=== PATIENT | male | born 1980 | race Hispanic/Latino ===

== ENCOUNTER 2016-11-23 17:45 | Emergency (ER) | payer BC ==
[2016-11-23 17:56] VITALS: BP 147/74; PULSE 67; RESP 16; TEMP 97.5; O2SAT 98
--- NOTE | 2016-11-23 19:36 | ED PDOC ---
Lower Extremity Pain/Injury Time Seen by Provider: 11/23/16 19:16 Chief Complaint (Nursing): Lower Extremity Problem/Injury Chief Complaint (Provider): Left Foot Pain History Per: Patient History/Exam Limitations: no limitations Onset/Duration Of Symptoms: Days (x3) Current Symptoms Are (Timing): Still Present Additional Complaint(s): 19:27 Oliver Ricks is a 35 year old male that presents to the ED with a chief complaint of left foot pain that he has been experiencing for the past three days. Patient states that he did not experience any trauma or injury, but rather that he woke up three days ago with left foot pain, and has had trouble bearing weight on his foot since. He reports that he has been walking a lot for that usual this past month, and that he wears "uncomfortable dress shoes that provide no support" while doing so. PMD: None Past Medical History Reviewed: Historical Data, Nursing Documentation, Vital Signs Vital Signs: Last Vital Signs Temp 97.5 F L 11/23/16 17:53 Pulse 67 11/23/16 17:53 Resp 16 11/23/16 17:53 BP 147/74 11/23/16 17:53 Pulse Ox 98 11/23/16 17:53 - Medical History PMH: No Chronic Diseases - Surgical History Surgical History: No Surg Hx - Family History Family History: States: Unknown Family Hx - Home Medications Home Medications: Ambulatory Orders Medication Instructions Recorded Ibuprofen [Motrin] 600 mg PO Q6 #20 tab 11/23/16 - Allergies Allergies/Adverse Reactions: Allergies Allergy/AdvReac Type Severity Reaction Status Date / Time No Known Allergies Allergy Verified 11/23/16 17:53 Review of Systems Musculoskeletal: Positive for: Foot Pain (left foot pain) Physical Exam - Reviewed Nursing Documentation Reviewed: Yes Vital Signs Reviewed: Yes - Physical Exam Appears: Positive for: Non-toxic, No Acute Distress Head Exam: Positive for: ATRAUMATIC, NORMOCEPHALIC Skin: Positive for: Normal Color, Warm Pulses-Dorsalis Pedis (L): 2+ Pulses-Dorsalis Pedis (R): 2+ Extremity: Positive for: Other (pain on dorsal aspect of left foot between fourth and fifth toes; no pain on plantar aspect of left foot) - ECG O2 Sat by Pulse Oximetry: 98 (RA) Pulse Ox Interpretation: Normal Medical Decision Making Medical Decision Makin:27 Initial Impression: Left Foot Pain (Possibly Jay's Neuroma) Initial Plan: * X-Ray Left Foot * Ibuprofen 600 mg PO * Reevaluation * * XR: NAD, as read by KYLAH Advised to follow up with podiatry clinic Scribe Attestation: Documented by Mary Bassett, acting as a scribe for Zahida Hargrove PA-C. Provider Scribe Attestation: All medical record entries made by the Scribe were at my direction and personally dictated by me. I have reviewed the chart and agree that the record accurately reflects my personal performance of the history, physical exam, medical decision making, and the department course for this patient. I have also personally directed, reviewed, and agree with the discharge instructions and disposition. Disposition - Clinical Impression Clinical Impression: Jay neuroma - Patient ED Disposition Is Patient to be Admitted: No - Disposition Referrals: [facility] [Outside] Podiatry Clinic [Outside] Disposition: Routine/Home Disposition Time: 22:19 Condition: STABLE Prescriptions: Ibuprofen [Motrin] 600 mg PO Q6 #20 tab Instructions: Jay Neuroma (ED)
--- NOTE | 2016-11-24 08:18 | RAD ---
PROCEDURE: Left Foot Radiographs. HISTORY: pain COMPARISON: None. FINDINGS: BONES: Normal. No fracture. JOINTS: Normal. SOFT TISSUES: Normal. OTHER FINDINGS: None. IMPRESSION: No evidence of acute pathology.
== END 2016-11-23 21:53 | disposition home or self-care (01) ==
LOC: H.ER 17:45
DX: M79.672 Pain in left foot (principal)

== ENCOUNTER 2017-07-21 03:24 | Observation (INO) | payer BC ==
[2017-07-21 03:33] VITALS: BMI 25.8
--- NOTE | 2017-07-21 04:08 | ED PDOC ---
HPI: Chest Pain Time Seen by Provider: 07/21/17 03:31 Chief Complaint (Nursing): Chest Pain Chief Complaint (Provider): Chest Pain History Per: Patient History/Exam Limitations: no limitations Onset/Duration Of Symptoms: Hrs (x2) Current Symptoms Are (Timing): Still Present Context: Other (Substance Abuse) Severity: Severe Associated Symptoms: denies: Diaphoresis Additional Complaint(s): 36 year old male presents to ED with complaints of chest pain x2 hours and has a past medical history of cocaine abuse. Notes that he has used cocaine regularly within the last 24 hours along with alcohol and marijuana, and notes onset of chest pain after cocaine abuse. Describes pain as severe. (+) palpitations and anxiety. (-) nausea, vomiting, diaphoresis, suicidal ideation, or homicidal ideation. PCP: [facility] Past Medical History Reviewed: Historical Data, Nursing Documentation, Vital Signs Vital Signs: Last Vital Signs Temp 97.4 F L 07/21/17 05:52 Pulse 71 07/21/17 05:52 Resp 18 07/21/17 05:52 BP 125/80 07/21/17 05:52 Pulse Ox 99 07/21/17 06:09 - Medical History PMH: No Chronic Diseases - Family History Family History: States: Unknown Family Hx - Social History Alcohol: Occasional Drugs: Cannabis, Cocaine - Home Medications Home Medications: Ambulatory Orders Medication Instructions Recorded Ibuprofen [Motrin] 600 mg PO Q6 PRN 07/21/17 - Allergies Allergies/Adverse Reactions: Allergies Allergy/AdvReac Type Severity Reaction Status Date / Time No Known Allergies Allergy Verified 07/21/17 03:33 RUSSELL Risk Score for UA/NSTEMI - RUSSELL Risk Score Age > 64: NO Known CAD (Stenosis greater than 50%): NO Severe Angina: NO RUSSELL Score: 0 Risk %: 5% Curb-65 Severity Score - CURB-65 Severity Score Confusion: No Respiratory Rate greater than/equal to 30: No Systolic BP <90 or Diastolic BP less than/equal 60mmHg: No Age >64: No Curb-65 Score: 0 Percentage 30-day mortality: 0.6% Wells Criteria for PE - Wells Criteria for Pulmonary Embolism Clinical Signs and Symptoms of DVT: No P.E is #1 Diagnosis, or Equally Likely: No Heart Rate >100: Yes Previous, objectively diagnosed PE or DVT: No Hemoptysis: No Malignancy w/treatment within 6 months, or palliative: No Total Score: 1.5 Review of Systems ROS Statement: Except As Marked, All Systems Reviewed And Found Negative Constitutional: Negative for: Sweats Cardiovascular: Positive for: Chest Pain, Palpitations Gastrointestinal: Negative for: Nausea, Vomiting Psych: Negative for: Suicidal ideation Physical Exam - Reviewed Nursing Documentation Reviewed: Yes Vital Signs Reviewed: Yes - Physical Exam Appears: Positive for: Non-toxic Head Exam: Positive for: ATRAUMATIC, NORMOCEPHALIC Skin: Positive for: Normal Color, Warm, Dry Eye Exam: Positive for: Normal appearance, EOMI, PERRL ENT: Positive for: Normal ENT Inspection Neck: Positive for: Normal, Painless ROM Cardiovascular/Chest: Positive for: Regular Rate, Rhythm, Tachycardia Respiratory: Positive for: Normal Breath Sounds. Negative for: Respiratory Distress Gastrointestinal/Abdominal: Positive for: Normal Exam, Soft. Negative for: Tenderness Back: Positive for: Normal Inspection Extremity: Positive for: Normal ROM. Negative for: Deformity Neurologic/Psych: Positive for: Alert, Oriented. Negative for: Motor/Sensory Deficits - Laboratory Results Result Diagrams: 07/21/17 03:50 07/21/17 03:50 - ECG O2 Sat by Pulse Oximetry: 99 (RA) Pulse Ox Interpretation: Normal Medical Decision Making Medical Decision Makin Initial impression: chest pain in setting of cocaine abuse Initial plan: * EKG * EtOH serum * Labs * UDrug screen * Trop I * PTT/PT * CXR * ASA 324 mg PO * Ativan 2mg IVP * Re-eval 0440 XR: NAD Labs reviewed: no clinically significant abnormalities Patient will be admitted to [facility] TELE. Will call Dr. Schroeder at [phone]. Dx: chest pain, cocaine abuse [address] Schroeder, who accepts patient under his care. Scribe Attestation: Documented by Susie Hall acting as a scribe for Santos Mendoza MD. Scribe Attestation: All medical record entries made by the Scribe were at my direction and personally dictated by me. I have reviewed the chart and agree that the record accurately reflects my personal performance of the history, physical exam, medical decision making, and the department course for this patient. I have also personally directed, reviewed, and agree with the discharge instructions and disposition. Disposition - Clinical Impression Clinical Impression: Chest pain, Cocaine abuse - Patient ED Disposition Is Patient to be Admitted: Yes Discussed With : Ju Schroeder - Disposition Disposition Time: 04:20 Condition: STABLE - Pt Status Changed To: Hospital Disposition Of: Observation (OBS TELE for chest pain observation) - POA Present On Arrival: None
[2017-07-21 04:12] LABS: BASO # 0.1 K/uL (0.0-0.2); BASO % 0.5 % (0.0-2.0); EOS # 0.1 K/uL (0.0-0.7); EOS % 0.8 % (0.0-4.0); HEMATOCRIT 41.2 % (35.0-51.0); LYMPH % 10.8 % (20.0-40.0); MEAN CORPUSCULAR HEMOGLOBIN 27.9 pg (27.0-31.0); MEAN CORPUSCULAR HGB CONC 33.6 g/dL (33.0-37.0); MEAN PLATELET VOLUME 7.7 fl (7.2-11.7); MONO # 1.1 K/uL (0.0-0.8); MONO % 5.8 % (0.0-10.0); NEUT # 14.9 K/uL (1.8-7.0); NEUT % 82.1 % (50.0-75.0); RED CELL DISTRIBUTION WIDTH 14.2 % (11.5-14.5); WHITE BLOOD COUNT 18.1 K/uL (4.8-10.8)
[2017-07-21 04:23] LABS: ALCOHOL SERUM < 10 mg/dl (0-10); BLOOD UREA NITROGEN 13 mg/dl (9-20); CALCIUM 9.5 mg/dL (8.4-10.2); CARBON DIOXIDE 25 mmol/L (22-30); CHLORIDE 100 mmol/L (98-107); GFR AFRICAN-AMERICAN > 60; GLUCOSE,RANDOM 108 mg/dL (75-110); PARTIAL THROMBOPLASTIN TIME 31.4 Seconds (25.6-37.1); POTASSIUM 3.7 MMOL/L (3.6-5.0); SODIUM 139 mmol/l (132-148)
--- NOTE | 2017-07-21 08:28 | CP.PCM.HP ---
History of Present Illness - History of Present Illness History of Present Illness: 36 year old male presents to ED with complaints of chest pain x2 hours and has a past medical history of cocaine abuse. Notes that he has used cocaine regularly within the last 24 hours along with alcohol and marijuana, and notes onset of chest pain after cocaine abuse. Describes pain as severe. (+) palpitations and anxiety. (-) nausea, vomiting, diaphoresis, suicidal ideation, or homicidal ideation. Past Patient History - Past Medical History & Family History Past Medical History?: No - Past Social History Alcohol: Occasional Drugs: Cannabis, Cocaine - CARDIAC Hx Cardiac Disorders: No - HEMATOLOGICAL/ONCOLOGICAL Hx AIDS: No Hx Human Immunodeficiency Virus (HIV): No - MUSCULOSKELETAL/RHEUMATOLOGICAL Hx Falls: No - PSYCHIATRIC Hx Psychophysiologic Disorder: No (anxiety) Hx Substance Use: Yes (cocaine & weed) - SURGICAL HISTORY Hx Surgeries: No Other/Comment: Polyp removed from tonsils - ANESTHESIA Hx Anesthesia: No Meds Allergies/Adverse Reactions: Allergies Allergy/AdvReac Type Severity Reaction Status Date / Time No Known Allergies Allergy Verified 07/21/17 03:33 Results - Vital Signs Recent Vital Signs: Last Vital Signs Temp 97.1 F L 07/21/17 08:00 Pulse 71 07/21/17 08:00 Resp 20 07/21/17 08:00 BP 112/67 07/21/17 08:00 Pulse Ox 97 07/21/17 08:00 - Labs Result Diagrams: 07/21/17 03:50 07/21/17 03:50 Labs: Laboratory Results - last 24 hr 07/21/17 07/21/17 07/21/17 03:50 03:50 03:50 WBC 18.1 H RBC 4.97 Hgb 13.8 Hct 41.2 MCV 83.0 MCH 27.9 MCHC 33.6 RDW 14.2 Plt Count 309 MPV 7.7 Neut % (Auto) 82.1 H Lymph % (Auto) 10.8 L [place] % (Auto) 5.8 Eos % (Auto) 0.8 Baso % (Auto) 0.5 Neut # 14.9 H Lymph # 2.0 Wirt # 1.1 H Eos # 0.1 Baso # 0.1 PT 13.6 H INR 1.2 APTT 31.4 Sodium 139 Potassium 3.7 Chloride 100 Carbon Dioxide 25 Anion Gap 18 BUN 13 Creatinine 0.8 Est GFR ( Amer) > 60 Est GFR (Non-Af Amer) > 60 Random Glucose 108 Calcium 9.5 Troponin I < 0.0120 Urine Opiates Screen Urine Methadone Screen Ur Barbiturates Screen Ur Phencyclidine Scrn Ur Amphetamines Screen U Benzodiazepines Scrn U Oth Cocaine Metabols U Cannabinoids Screen Alcohol, Quantitative < 10 07/21/17 06:00 WBC RBC Hgb Hct MCV MCH MCHC RDW Plt Count MPV Neut % (Auto) Lymph % (Auto) [place] % (Auto) Eos % (Auto) Baso % (Auto) Neut # Lymph # Wirt # Eos # Baso # PT INR APTT Sodium Potassium Chloride Carbon Dioxide Anion Gap BUN Creatinine Est GFR ( Amer) Est GFR (Non-Af Amer) Random Glucose Calcium Troponin I Urine Opiates Screen Negative Urine Methadone Screen Negative Ur Barbiturates Screen Negative Ur Phencyclidine Scrn Negative Ur Amphetamines Screen Negative U Benzodiazepines Scrn Negative U Oth Cocaine Metabols Positive H U Cannabinoids Screen Positive H Alcohol, Quantitative Assessment & Plan (1) Chest pain Status: Acute (2) Cocaine abuse Status: Acute
--- NOTE | 2017-07-21 11:03 | RAD ---
HISTORY: chest pain COMPARISON: Chest radiograph dated 09/07/2012 FINDINGS: LUNGS: No active pulmonary disease. PLEURA: No significant pleural effusion identified, no pneumothorax apparent. CARDIOVASCULAR: Normal. OSSEOUS STRUCTURES: No significant abnormalities. VISUALIZED UPPER ABDOMEN: Normal. OTHER FINDINGS: None. IMPRESSION: No active disease.
--- NOTE | 2017-07-21 11:13 | CARD ---
APPROVED REPORT EKG Measurement Heart [id number] <Conclusion> Sinus tachycardia Otherwise normal ECG
[2017-07-21 11:37] LABS: HEMATOCRIT 39.6 % (35.0-51.0); MEAN CELL VOLUME 82.8 fl (80.0-94.0); MEAN CORPUSCULAR HEMOGLOBIN 28.4 pg (27.0-31.0); MEAN CORPUSCULAR HGB CONC 34.3 g/dL (33.0-37.0); RED CELL DISTRIBUTION WIDTH 13.9 % (11.5-14.5)
[2017-07-21 13:02] VITALS: O2SAT 98
[2017-07-21 16:13] VITALS: BP 123/79; PULSE 61; RESP 17; TEMP 97.7
--- NOTE | 2017-07-21 17:08 | CP.PCM.CON ---
History of Present Illness - History of Present Illness History of Present Illness: This 36-year-old man came into the emergency room complaining of severe chest tightness and by his own account this was following inhalation of cocaine. The patient reports that in the past he has experienced similar discomfort under similar circumstances but this time around it was extremely intense requiring him to come to the emergency room. The patient occasionally plays basketball and climbs couple of flights of stairs without experiencing any chest pain. He has been a smoker for approximately 17 years. He denies any history of diabetes. He has been told of elevated blood pressure readings during visit to dental offices in the last 3-4 months. He has not been on any antihypertensives medication. Denies knowing his lipid profile. He indicated that multiple members of his family on his mother's side have had coronary artery disease. The patient himself indicates that he has never been hospitalized and has never been on any medications and has never been operated on. Physical examination shows a young man who is alert awake over and afebrile and quite readily forthcoming with details of his history. His respirator rate was 14-16 breaths per minute and his heart rate was 78 bpm and regular and his blood pressure was 142/80 millimeters of mercury. His jugular venous pressure was not elevated and there was no edema was noted extremity. His pedal pulses are well felt and there were no carotid bruits. His extremities were warm and his nailbeds were pink. There was no central or peripheral cyanosis. The apex was not palpable. The first and second heart sounds are normal. There was no gallop and there were no murmurs. Abdomen was soft liver and spleen are not palpable. His electro-cardiogram showed sinus rhythm with no ST-T abnormality suggestive of myocardial ischemia and there were no Q waves on the electric cardiogram. An echocardiogram done this afternoon shows normal left ventricular systolic function and wall motion. There was no valvular abnormality detected. His lab tests show normal BUN/creatinine and electrolytes. His CBC was also satisfactory. A lipid profile was not included in his lab tests. Impression: Atypical chest pain with no evidence of acute coronary syndrome. The chest pain was most likely brought on by cocaine use. Chronic cigarette use The patient may be allowed to return home and be followed by his primary care physician. The patient certainly needs to have his lipid profile evaluated and I have urged him strongly to quit smoking given his family history. He also needs to follow his blood pressure readings and if abnormal needs to start taking anti-hypertensives as well. Past Patient History - Past Medical History & Family History Past Medical History?: No - Past Social History Alcohol: Occasional Drugs: Cannabis, Cocaine - CARDIAC Hx Cardiac Disorders: No - HEMATOLOGICAL/ONCOLOGICAL Hx AIDS: No Hx Human Immunodeficiency Virus (HIV): No - MUSCULOSKELETAL/RHEUMATOLOGICAL Hx Falls: No - PSYCHIATRIC Hx Psychophysiologic Disorder: No (anxiety) Hx Substance Use: Yes (cocaine & weed) - SURGICAL HISTORY Hx Surgeries: No Other/Comment: Polyp removed from tonsils - ANESTHESIA Hx Anesthesia: No Meds Allergies/Adverse Reactions: Allergies Allergy/AdvReac Type Severity Reaction Status Date / Time No Known Allergies Allergy Verified 07/21/17 03:33 Results - Vital Signs Recent Vital Signs: Last Vital Signs Temp 97.7 F 07/21/17 16:12 Pulse 61 07/21/17 16:12 Resp 17 07/21/17 16:12 BP 123/79 07/21/17 16:12 Pulse Ox 98 07/21/17 16:12 - Labs Result Diagrams: 07/21/17 10:54 07/21/17 03:50 Labs: Laboratory Results - last 24 hr 07/21/17 07/21/17 07/21/17 03:50 03:50 03:50 WBC 18.1 H RBC 4.97 Hgb 13.8 Hct 41.2 MCV 83.0 MCH 27.9 MCHC 33.6 RDW 14.2 Plt Count 309 MPV 7.7 Neut % (Auto) 82.1 H Lymph % (Auto) 10.8 L [place] % (Auto) 5.8 Eos % (Auto) 0.8 Baso % (Auto) 0.5 Neut # 14.9 H Lymph # 2.0 [place] # 1.1 H Eos # 0.1 Baso # 0.1 PT 13.6 H INR 1.2 APTT 31.4 Sodium 139 Potassium 3.7 Chloride 100 Carbon Dioxide 25 Anion Gap 18 BUN 13 Creatinine 0.8 Est GFR ( Amer) > 60 Est GFR (Non-Af Amer) > 60 Random Glucose 108 Calcium 9.5 Troponin I < 0.0120 Urine Opiates Screen Urine Methadone Screen Ur Barbiturates Screen Ur Phencyclidine Scrn Ur Amphetamines Screen U Benzodiazepines Scrn U Oth Cocaine Metabols U Cannabinoids Screen Alcohol, Quantitative < 10 07/21/17 07/21/17 07/21/17 06:00 09:37 10:54 WBC 14.0 H RBC 4.78 Hgb 13.6 Hct 39.6 MCV 82.8 MCH 28.4 MCHC 34.3 RDW 13.9 Plt Count 329 MPV Neut % (Auto) Lymph % (Auto) [place] % (Auto) Eos % (Auto) Baso % (Auto) Neut # Lymph # [place] # Eos # Baso # PT INR APTT Sodium Potassium Chloride Carbon Dioxide Anion Gap BUN Creatinine Est GFR ( Amer) Est GFR (Non-Af Amer) Random Glucose Calcium Troponin I < 0.0120 Urine Opiates Screen Negative Urine Methadone Screen Negative Ur Barbiturates Screen Negative Ur Phencyclidine Scrn Negative Ur Amphetamines Screen Negative U Benzodiazepines Scrn Negative U Oth Cocaine Metabols Positive H U Cannabinoids Screen Positive H Alcohol, Quantitative
--- NOTE | 2017-07-21 23:40 | CP.PCM.DIS ---
Provider - Provider Date of Admission: 07/21/17 04:18 Attending physician: Ju Schroeder MD Diagnosis - Discharge Diagnosis (1) Chest pain Status: Acute (2) Cocaine abuse Status: Acute Hospital Course - Lab Results Lab Results: Most Recent Lab Values WBC 14.0 K/uL (4.8-10.8) H 07/21/17 10:54 RBC 4.78 Mil/uL (4.40-5.90) 07/21/17 10:54 Hgb 13.6 g/dL (12.0-18.0) 07/21/17 10:54 Hct 39.6 % (35.0-51.0) 07/21/17 10:54 MCV 82.8 fl (80.0-94.0) 07/21/17 10:54 MCH 28.4 pg (27.0-31.0) 07/21/17 10:54 MCHC 34.3 g/dL (33.0-37.0) 07/21/17 10:54 RDW 13.9 % (11.5-14.5) 07/21/17 10:54 Plt Count 329 K/uL (130-400) 07/21/17 10:54 MPV 7.7 fl (7.2-11.7) 07/21/17 03:50 Neut % (Auto) 82.1 % (50.0-75.0) H 07/21/17 03:50 Lymph % (Auto) 10.8 % (20.0-40.0) L 07/21/17 03:50 [place] % (Auto) 5.8 % (0.0-10.0) 07/21/17 03:50 Eos % (Auto) 0.8 % (0.0-4.0) 07/21/17 03:50 Baso % (Auto) 0.5 % (0.0-2.0) 07/21/17 03:50 Neut # 14.9 K/uL (1.8-7.0) H 07/21/17 03:50 Lymph # 2.0 K/uL (1.0-4.3) 07/21/17 03:50 Jones # 1.1 K/uL (0.0-0.8) H 07/21/17 03:50 Eos # 0.1 K/uL (0.0-0.7) 07/21/17 03:50 Baso # 0.1 K/uL (0.0-0.2) 07/21/17 03:50 PT 13.6 Seconds (9.8-13.1) H 07/21/17 03:50 INR 1.2 (0.9-1.2) 07/21/17 03:50 APTT 31.4 Seconds (25.6-37.1) 07/21/17 03:50 Sodium 139 mmol/l (132-148) 07/21/17 03:50 Potassium 3.7 MMOL/L (3.6-5.0) 07/21/17 03:50 Chloride 100 mmol/L (98-107) 07/21/17 03:50 Carbon Dioxide 25 mmol/L (22-30) 07/21/17 03:50 Anion Gap 18 (10-20) 07/21/17 03:50 BUN 13 mg/dl (9-20) 07/21/17 03:50 Creatinine 0.8 mg/dl (0.8-1.5) 07/21/17 03:50 Est GFR ( Amer) > 60 07/21/17 03:50 Est GFR (Non-Af Amer) > 60 07/21/17 03:50 Random Glucose 108 mg/dL (75-110) 07/21/17 03:50 Calcium 9.5 mg/dL (8.4-10.2) 07/21/17 03:50 Troponin I < 0.0120 ng/mL (0.00-0.120) 07/21/17 09:37 Urine Opiates Screen Negative (NEGATIVE) 07/21/17 06:00 Urine Methadone Screen Negative (NEGATIVE) 07/21/17 06:00 Ur Barbiturates Screen Negative (NEGATIVE) 07/21/17 06:00 Ur Phencyclidine Scrn Negative (NEGATIVE) 07/21/17 06:00 Ur Amphetamines Screen Negative (NEGATIVE) 07/21/17 06:00 U Benzodiazepines Scrn Negative (NEGATIVE) 07/21/17 06:00 U Oth Cocaine Metabols Positive (NEGATIVE) H 07/21/17 06:00 U Cannabinoids Screen Positive (NEGATIVE) H 07/21/17 06:00 Alcohol, Quantitative < 10 mg/dl (0-10) 07/21/17 03:50 Discharge Exam - Head Exam Head Exam: ATRAUMATIC, NORMOCEPHALIC Discharge Plan - Follow Up Plan Condition: STABLE Disposition: HOME/ ROUTINE Instructions: Chest Pain (DC), Chest Pain (GEN)
--- NOTE | 2017-07-22 11:32 | CARD ---
APPROVED REPORT EXAM: Two-dimensional and M-mode echocardiogram with Doppler and color Doppler. Other Information Quality : GoodRhythm : NSR INDICATION Chest Pain 2D DIMENSIONS IVSd1.21 (0.7-1.1cm)LVDd4.69 (3.9-5.9cm) LVOT Diameter2.15 (1.8-2.4cm)PWd0.77 (0.7-1.1cm) IVSs1.43 (0.8-1.2cm)LVDs2.91 (2.5-4.0cm) FS (%) 38.0 %PWs1.35 (0.8-1.2cm) M-Mode DIMENSIONS Left Atrium (MM)3.65 (2.5-4.0cm)IVSd0.88 (0.7-1.1cm) Aortic Root2.85 (2.2-3.7cm)LVDd5.24 (4.0-5.6cm) Aortic Cusp Exc.2.03 (1.5-2.0cm)PWd1.24 (0.7-1.1cm) IVSs1.59 cmFS (%) 48 % LVDs2.74 (2.0-3.8cm)PWs1.91 cm Mitral Valve MV E Uahifyty52.7cm/sMV DECEL [id number] A Danbqomc46.8cm/s MV EDK02yrG/A ratio2.6MVA (PHT)3.52cm2 TDI Lateral E' Peak V17.19cm/sMedial E' Peak V12.63cm/sE/Lateral E'5.1 E/Medial E'6.9 Pulmonary Valve PV Peak Tepwldob34.5cm/s LEFT VENTRICLE The left ventricle is normal size. There is normal left ventricular wall thickness. The left ventricular function is normal. The left ventricular ejection fraction is 60% There is normal LV segmental wall motion. The left ventricular diastolic function is normal. No left ventricle thrombus noted on this study. There is no ventricular septal defect visualized. There is no left ventricular aneurysm. There is no mass noted in the left ventricle. RIGHT VENTRICLE The right ventricle is normal size. There is normal right ventricular wall thickness. The right ventricular systolic function is normal. ATRIA The left atrium size is normal. The right atrium size is normal. The interatrial septum is intact with no evidence for an atrial septal defect. AORTIC VALVE The aortic valve is normal in structure. No aortic regurgitation is present. There is no aortic valvular stenosis. There is no aortic valvular vegetation. MITRAL VALVE The mitral valve is normal in structure. There is no evidence of mitral valve prolapse. There is no mitral valve stenosis. There is no mitral valve regurgitation noted. TRICUSPID VALVE The tricuspid valve is normal in structure. There is no tricuspid valve regurgitation noted. There is no tricuspid valve prolapse or vegetation. There is no tricuspid valve stenosis. PULMONIC VALVE The pulmonary valve is normal in structure. There is no pulmonic valvular regurgitation. There is no pulmonic valvular stenosis. GREAT VESSELS The aortic root is normal in size. The ascending aorta is normal in size. The IVC is normal in size and collapses >50% with inspiration. PERICARDIAL EFFUSION The pericardium appears normal. There is no pleural effusion. <Conclusion> Normal Echocardiogram
== END 2017-07-21 17:45 | disposition home or self-care (01) ==
LOC: H.ER 03:24 → H.ERHOLD 04:18 → H.TEL 05:39
PROVIDERS: ADMIT Internal Medicine; ATTEND Internal Medicine
DX: R07.89 Other chest pain (principal); F14.10 Cocaine abuse, uncomplicated; F17.200 Nicotine dependence, unspecified, uncomplicated; F41.9 Anxiety disorder, unspecified; Z82.49 Family history of ischemic heart disease and other diseases of the circulatory system; R00.2 Palpitations; R03.0 Elevated blood-pressure reading, without diagnosis of hypertension
CPT/HCPCS: 71010; 80048; 84484; 85025; 85027; 85610; 85730; 93005; 93306; 96374; 99284; G0378; G0480; J2060

== ENCOUNTER 2017-08-30 04:13 | Emergency (ER) | payer BC ==
[2017-08-30 04:13] VITALS: BMI 25.8
[2017-08-30 04:37] VITALS: BP 140/96; PULSE 96; RESP 18; TEMP 99.6; O2SAT 99
--- NOTE | 2017-08-30 04:49 | ED PDOC ---
HPI: General Adult Chief Complaint (Provider): head trauma History Per: Patient Time Seen by Provider: 08/30/17 04:47 Chief Complaint (Nursing): Trauma Additional Complaint(s): 36-year-old male presents to emergency department with scalp laceration. Patient was drinking tonight when he slipped and fell injuring the back of his head. He did not sustain loss of consciousness. Patient is not sure of last tetanus. He arrives via ambulance. PMD: none (Amselle[place]urah,Zahida) Past Medical History Reviewed: Historical Data, Nursing Documentation, Vital Signs - Medical History PMH: Anxiety - Family History Family History: States: No Known Family Hx - Living Arrangements Living Arrangements: With Friends/Others - Social History Alcohol: Social - Immunization History Hx Tetanus Toxoid Vaccination: No (not sure of last booster) Vital Signs: Last Vital Signs Temp 99.6 F 08/30/17 04:32 Pulse 96 H 08/30/17 04:32 Resp 18 08/30/17 04:32 BP 140/96 H 08/30/17 04:32 Pulse Ox 99 08/30/17 05:58 - Home Medications Home Medications: Ambulatory Orders Medication Instructions Recorded Ibuprofen [Motrin Tab] 600 mg PO Q6 PRN 07/21/17 - Allergies Allergies/Adverse Reactions: Allergies Allergy/AdvReac Type Severity Reaction Status Date / Time No Known Allergies Allergy Verified 08/30/17 04:31 Review of Systems ROS Statement: Except As Marked, All Systems Reviewed And Found Negative Skin: Positive for: Other (scalp laceration) Neurological: Positive for: Other (head injury with no LOC) Psych: Positive for: Other (etoh) Physical Exam - Reviewed Nursing Documentation Reviewed: Yes Vital Signs Reviewed: Yes - Physical Exam Appears: Positive for: Well, Non-toxic, No Acute Distress Head Exam: Negative for: ATRAUMATIC (2 cm laceration noted to mid occipital scalp, no active bleeding, mild surrounding soft tissue swelling) Skin: Negative for: Rash Eye Exam: Positive for: Normal appearance ENT: Positive for: Normal ENT Inspection Neck: Positive for: Normal Cardiovascular/Chest: Positive for: Regular Rate, Rhythm Respiratory: Positive for: Normal Breath Sounds Neurologic/Psych: Positive for: Alert, Other (Intoxicated, answers some questions appropriately) - ECG O2 Sat by Pulse Oximetry: 99 Pulse Ox Interpretation: Normal - Other Rad CT head X-Ray: Read By Radiologist X-Ray Interpretation: no acute finding, no bleed - Progress ED Course And Treament: 07:00 --Patient is clinically sober for discharge home. Diagnosed with scalp laceration and alcohol intoxication. (Santos Mendoza) Medical Decision Makin-year-old intoxicated male with head injury. Plan: CT head Adacel Lac repair Procedure Note: Laceration to scalp was anesthetized with 3 mL of 1% lidocaine without epinephrine under sterile conditions, good anesthesia was achieved. Wound was cleansed with normal saline and Betadine, 4 juan were used to approximate wound, good wound approximation was achieved, good bleeding control was achieved. Procedure tolerated well by patient with no acute complications. BAL: 249 (Amselleketurah,Zahida) Disposition - Patient ED Disposition Is Patient to be Admitted: Transfer of Care - Disposition Disposition: Transfer of Care Disposition Time: 06:00 Patient Signed Over To: Santos Mendoza Handoff Comments: Signed out to Dr. Mendoza pending sobriety and final dispo - Clinical Impression Clinical Impression: Scalp laceration, Requires a booster tetanus, Alcohol intoxication - Disposition Referrals: [facility] [Outside] Condition: STABLE Additional Instructions: Staple removal in 5 days with your doctor or clinic Instructions: Alcohol Intoxication (ED), Staple Care (ED) Forms: [employer] (Indonesian)
[2017-08-30] MEDS ORDERED: Lidocaine 1% Inj (20ml) ONE (04:58)
--- NOTE | 2017-08-30 10:09 | CT ---
PROCEDURE: CT HEAD WITHOUT CONTRAST. HISTORY: trauma COMPARISON: None available. TECHNIQUE: Axial computed tomography images were obtained through the head/brain without intravenous contrast. Radiation dose: Total exam DLP = 1331.19 mGy-cm. This CT exam was performed using one or more of the following dose reduction techniques: Automated exposure control, adjustment of the mA and/or kV according to patient size, and/or use of iterative reconstruction technique. FINDINGS: HEMORRHAGE: No intracranial hemorrhage. BRAIN: No mass effect or edema. No atrophy or chronic microvascular ischemic changes. VENTRICLES: Unremarkable. No hydrocephalus. CALVARIUM: Unremarkable. PARANASAL SINUSES: Mild mucosal thickening in the ethmoid and right sphenoid sinuses. MASTOID AIR CELLS: Unremarkable as visualized. No inflammatory changes. OTHER FINDINGS: There is midline cystic structure at the posterior fossa communicated with the 4th ventricle. IMPRESSION: No evidence of acute intracranial hemorrhage or acute pathology in the brain. Additional findings as described above. Preliminary report was submitted by [facility].
== END 2017-08-30 06:45 | disposition home or self-care (01) ==
LOC: H.ER 04:13
DX: S01.01XA Laceration without foreign body of scalp, initial encounter (principal); W01.0XXA Fall on same level from slipping, tripping and stumbling without subsequent striking against object, initial encounter; Y92.89 Other specified places as the place of occurrence of the external cause; F10.129 Alcohol abuse with intoxication, unspecified; F41.9 Anxiety disorder, unspecified
CPT/HCPCS: 12001; 70450; 99283; G0480

== ENCOUNTER 2017-11-06 17:11 | Emergency (ER) | payer OTHER ==
[2017-11-06 17:11] VITALS: BMI 25.8
[2017-11-06 17:18] VITALS: BP 164/90; PULSE 98; RESP 18; TEMP 98.3; O2SAT 99
[2017-11-06] MEDS ORDERED: Lidocaine 1% (10 ml) Inj INFIL STA (17:29)
[2017-11-06] MEDS ORDERED: Tdap Vaccine 0.5 ml Vial (10-64 yrs) IM ONE (17:29)
[2017-11-06] MEDS ORDERED: ceFAZolin 1 GM in Sodium Chloride 0.9% 100 ML IVPB ONE (17:36)
[2017-11-06] MEDS ORDERED: Lidocaine Hydrochloride 1% 10 ML ONE (17:37)
--- NOTE | 2017-11-06 18:54 | ED PDOC ---
Upper Extremity Pain/Injury Time Seen by Provider: 11/06/17 17:17 Chief Complaint (Nursing): Finger,Hand,&Wrist Chief Complaint (Provider): Laceration left palm on broken glass at 2am (12 hours [employer]) History Per: Patient History/Exam Limitations: no limitations Onset/Duration Of Symptoms: Hrs Current Symptoms Are (Timing): Still Present Quality: Sharp Severity: Moderate Pain Scale Rating Of: 7 Additional Complaint(s): Pt cut his left hand at approx 2am today on broken glass. Pt states he went to an urgent care and was told to come to ER for further evaluation. PT states finger feels tingling. Past Medical History Reviewed: Historical Data, Nursing Documentation, Vital Signs Vital Signs: Last Vital Signs Temp 98.3 F 11/06/17 17:13 Pulse 98 H 11/06/17 17:13 Resp 18 11/06/17 17:13 BP 164/90 H 11/06/17 17:13 Pulse Ox 99 11/06/17 17:13 - Medical History PMH: Anxiety Denies: HIV - Surgical History Surgical History: No Surg Hx - Family History Family History: States: Unknown Family Hx - Living Arrangements Living Arrangements: With Family - Social History Current smoker - smoking cessation education provided: No Drugs: Denies - Immunization History Hx Tetanus Toxoid Vaccination: No (not sure of last booster) - Home Medications Home Medications: Ambulatory Orders Medication Instructions Recorded Ibuprofen [Motrin Tab] 600 mg PO Q6 PRN 07/21/17 Amoxicillin/Clavulanate [Augmentin 1 tab PO BID #20 tab 11/06/17 875 MG-125 MG] oxyCODONE/Acetaminophen [Percocet 1 ea PO Q6H PRN #10 tab 11/06/17 5/325 mg Tab] - Allergies Allergies/Adverse Reactions: Allergies Allergy/AdvReac Type Severity Reaction Status Date / Time No Known Allergies Allergy Verified 08/30/17 04:31 Review of Systems ROS Statement: Except As Marked, All Systems Reviewed And Found Negative Constitutional: Negative for: Fever, Chills Skin: Positive for: Other (Laceration) Neurological: Positive for: Weakness (Left 2nd digit ) Physical Exam - Reviewed Nursing Documentation Reviewed: Yes Vital Signs Reviewed: Yes - Physical Exam Appears: Positive for: Well, Non-toxic, No Acute Distress Head Exam: Positive for: ATRAUMATIC, NORMAL INSPECTION, NORMOCEPHALIC Skin: Positive for: Warm. Negative for: Normal Color (Laceration, left palm, base of the 2nd digit, linear, approx 3 cm ) Eye Exam: Positive for: Normal appearance ENT: Positive for: Normal ENT Inspection Neck: Positive for: Normal Respiratory: Negative for: Accessory Muscle Use, Respiratory Distress Back: Positive for: Normal Inspection Extremity: Positive for: Capillary Refill, Other (Sensation of finger intact ). Negative for: Normal ROM (Flexor strength of the left 2nd digit 4/5), Deformity, Swelling Neurologic/Psych: Positive for: Alert, Oriented - ECG O2 Sat by Pulse Oximetry: 99 Medical Decision Making Medical Decision Making: After irritation and local infiltrate with lidocaine 1% would explored. No FB, no tendon laceration visualized. Discussed laceration, tingling in finger and decreased flexor strength of the second metacarpal with Dr. Farah. Advised for approximation of wound, dressing and f/u in office for exploratory evaluation. Procedures - Laceration/Wound Repair Hand Wound Length (cm): 3 Wound's Depth, Shape: superficial Wound Explored: no foreign body removed Betadine Prep?: Yes Anesthesia: 1% Lidocaine Wound Repaired With: Sutures Suture Size/Type: 4:0, nylon Wound Complexity: Simple (Antibiotic ointment and dressing applied) Disposition - Clinical Impression Clinical Impression: Hand laceration involving tendon - Patient ED Disposition Is Patient to be Admitted: No Counseled Patient/Family Regarding: Diagnosis, Need For Followup, Rx Given - Disposition Referrals: Blossom Farah MD [Staff Provider] - [facility] [Outside] Disposition: Routine/Home Disposition Time: 18:53 Condition: GOOD Additional Instructions: Please call Dr. Farah on Wednesday at 9am. Please inform staff that I spoke with Dr. Farah when you were in the ER and she would like to you make an appointment. Antibiotics twice a day. Motrin for pain. Percocet for severe pain. Prescriptions: Amoxicillin/Clavulanate [Augmentin 875 MG-125 MG] 1 tab PO BID #20 tab oxyCODONE/Acetaminophen [Percocet 5/325 mg Tab] 1 ea PO Q6H PRN #10 tab PRN Reason: Pain, Severe (8-10) Instructions: Tendon Repair, Laceration Repair, Tendon Laceration (DC) Forms: [employer] (Lao)
--- NOTE | 2017-11-07 08:13 | RAD ---
PROCEDURE: Left Hand Radiographs. HISTORY: head laceration, ? FB COMPARISON: None. FINDINGS: BONES: Bone alignment and mineralization are normal. There is no acute fracture or bone destruction JOINTS: Normal. SOFT TISSUES: There is soft tissue swelling and irregularity in the 1st web space. No radiopaque foreign body. OTHER FINDINGS: None. IMPRESSION: Soft tissue swelling and laceration in the 1st web space. No radiopaque foreign body.
== END 2017-11-06 19:03 | disposition home or self-care (01) ==
LOC: H.ER 17:11
DX: S66.922A Laceration of unspecified muscle, fascia and tendon at wrist and hand level, left hand, initial encounter (principal); W25.XXXA Contact with sharp glass, initial encounter; Y92.89 Other specified places as the place of occurrence of the external cause; F41.9 Anxiety disorder, unspecified
CPT/HCPCS: 26356; 73130; 90471; 90715; 96374; 99284; J0690